=== PATIENT | male | born 1970 | race Two or more races ===

== ENCOUNTER 2022-03-19 09:28 | Emergency (ER) | payer MEDICAID, OTHER, SELFPAY ==
--- NOTE | ~2022-03-19 | CT_ITS ---
EXAMINATION: CT ABDOMEN AND PELVIS WITHOUT CONTRAST CLINICAL INFORMATION: Intermittent constipation for 20 days. COMPARISON: None TECHNIQUE: Multidetector volumetric imaging was performed from the superior aspect of the liver through the pubic symphysis. Sagittal and coronal reformatted images were obtained on the technologist's workstation. Lack of intravenous and oral contrast limits visceral evaluation. This CT examination was performed using dose optimization techniques as appropriate, variously including the following: *Automated exposure control *Adjustment of mA and/or kV according to patient size (this includes techniques or standardized protocols for targeted exams where dose is matched to indication/reason for exam; i.e. extremities or head) *Use of iterative reconstruction technique DLP: 467 mGy-cm FINDINGS: LUNG BASES: The visualized lung bases are unremarkable. LIVER, GALLBLADDER, AND BILIARY TREE: Unremarkable. PANCREAS: Unremarkable. SPLEEN: Unremarkable. ADRENAL GLANDS: Unremarkable. KIDNEYS AND URETERS: The kidneys are normal in size, shape, and attenuation. No hydronephrosis, hydroureter, or calculi seen. No perinephric stranding. BLADDER: Unremarkable. GASTROINTESTINAL TRACT: The stomach and small bowel are unremarkable. The appendix is unremarkable. The colon shows mild stool without surrounding abnormality. ABDOMINAL WALL: Very small umbilical hernia without associated abnormality. LYMPH NODES: Normal. VASCULAR: Unremarkable. PELVIC VISCERA: Unremarkable. OSSEOUS STRUCTURES: L5-S1 mild degenerative disc disease. No suspicious abnormality. CT/CT abdomen pelvis wo IV con IMPRESSION: 1. No acute intra-abdominal/pelvic abnormality. Mild colonic stool burden without focal abnormality. 2. Very small umbilical hernia without associated abnormality. 3. L5-S1 mild degenerative disc disease.
[2022-03-19 09:32] VITALS: BP 148/106; PULSE 73; RESP 16; TEMP 36.7; O2SAT 99; BMI 27.7
--- NOTE | 2022-03-19 10:11 | ED.ABDPAIN ---
HPI - Abdominal Pain General Chief Complaint: General Medical Stated Complaint: Constipation Time Seen by Provider: 03/19/22 10:03 Source: patient and family Mode of arrival: ambulatory Limitations: language barrier (Panamanian-speaking) History of Present Illness HPI narrative: 51yoM c PMHx of XANDER who is Panamanian-speaking presenting to the ED with complaints of intermittent constipation over the past 20 days. Reports that his last bowel movement was approximately 2 days ago and it was a small amount and very hard. He reports when he does have a bowel movement he has a really sharp back pain. Otherwise he does not have any back pain when he is not having a bowel movement. He reports that he has never suffered from constipation in the past. He reports this started 20 days ago. He reports his stools are still on the thinner side. He denies any dizziness, headaches, chest pain or shortness breath, nausea vomiting, abdominal pain, flank pain, hematuria, black or bloody stools, diarrhea, urinary or bowel incontinence or retention, IV drug use, rashes, recent falls or trauma, dysuria, hematuria, abnormal penile discharge, history of cancer, recent travel or any other symptoms complaints or concerns at this time. MD elicited complaint: other (Constipation) Pertinent past history: none Onset (ago): day(s) (Started approximately 20 days ago last bowel movement was 2 days ago) Pain Consistency: intermittent Location: other (back) Severity: mild Quality: aching Radiation: none Migration to: no migration Exacerbating factors: bowel movement Relieving factors: nothing Associated symptoms: denies other symptoms Related Data Previous Rx's Medication Instructions Recorded docusate sodium 100 mg capsule 100 mg PO BID PRN Constipation #30 03/19/22 (Colace) caps polyethylene glycol 3350 17 17 g PO DAILY #238 grams 03/19/22 gram/dose oral powder (Miralax) Allergies Allergy/AdvReac Type Severity Reaction Status Date / Time No Known Allergies Allergy Verified 03/19/22 09:35 Review of Systems Review of Systems Constitutional : No Fever, No Chills, No Night Sweats, No Fatigue, No Malaise Cardiovascular : No Chest Pain, No SOB Respiratory : No Cough, No Sputum, No Wheezing, No Dyspnea Gastrointestinal : +Constipation, No Nausea, No Vomiting, No Diarrhea, No abdominal Pain, No Hematochezia, No Melena Genitourinary : No irregular bleeding, No Dysuria, No Urinary Frequency, No Hematuria,No Urinary Incontinence, No Urgency, No Flank Pain Musculoskeletal : No joint pain, No Myalgias, No Joint Swelling Skin : No Skin Lesions, No rash Neuro : No Weakness, No Numbness, No Paresthesias, No Loss of Consciousness, No Dizziness, No Headache Heme/Lymph: No Lymphadenopathy Endocrine : No Temperature Intolerance Yes all other systems are reviewed and are negative [facility] Past Medical History Attestation statement: The following information was validated with the patient. Source: old records reviewed, obtained from family and nursing notes reviewed Social History Social History Advance Directives: No Advance Directives Information Provided: Yes Physical Exam ED Vital Signs: Vital Signs - 24 hr 03/19/22 09:32 Temperature 98.1 F Pulse Rate 73 Respiratory Rate 16 Blood Pressure 148/106 H Pulse Oximetry 99 Oxygen Delivery Method Room Air BMI result Body Mass Index 27.7 vital signs have been reviewed as normal and appeared to be correct. Blood pressure 148/106. Heart rate normal. Respiration rate normal. Temperature normal. Oxygen saturation normal. Appearance: Alert. Oriented X3. No acute distress. Head: Normal external exam. Normocephalic. Atraumatic. Eyes: PERRLA. EOMI. Conjunctiva and sclera normal. Eyelids normal. ENT: Pharynx normal. Uvula midline. Moist mucous membranes. No lesions/ulcerations or masses noted on the tongue. Normal voice. No trismus noted. No drooling noted. No muffled voice noted. Neck: Normal inspection. Neck supple. FROM. No adenopathy. Thyroid Normal. No meningeal signs. CVS: Normal heart rate and rhythm. Heart sound normal. Pulses normal throughout. No murmurs/rales/gallops. Respiratory: No respiratory distress. Painless inspiration. Breath sounds normal. No wheezes/rales/rhonchi noted. No accessory muscle usage noted or decreased air movement noted. Abdomen: Soft and nontender. Bowel sounds normal in all 4 quadrants. No distention noted. No organomegaly noted. No visible injury noted. Back: No CVA tenderness. Full range of motion noted. Nontender. No signs of trauma. Patient neuro intact bilaterally and distally on all 4 extremities. Patient's reflexes intact bilaterally and distally on all 4 extremities. No rashes/lesion/induration/fluctuance or signs of infection noted. Skin: Skin warm and dry. Normal skin color. Normal skin turgor. No rashes/lesions/lacerations noted. Extremities: Extremities exhibit normal range of motion and nontender. Neuro: Oriented X 3. No motor deficit. No sensory deficit. Normal steady gait. No focal neuro deficits noted. CN's II-XII intact bilaterally? Vascular: + radial pulses/+ 2 distal pedal pulses/+2 dorsalis pedis b/l. Normal cap refill. No cyanosis noted to upper extremity nails Course Course Course Narrative: 10:15am - 51yoM c PMHx of XANDER who is Panamanian-speaking presenting to the ED with complaints of intermittent constipation over the past 20 days, last bowel movement approximately 2 days ago which was a small amount and very hard. He reports that he has noticed his stools have been on the thinner size. He denies having constipation the past. He denies any other symptoms complaints or concerns at this time. Presentation not consistent with acute bowel obstruction caused by tumor, stricture, hernia, adhesion, volvulus, or fecal impaction. Low suspicion for etiology related to new medications including opioids, antipsychotic, anticholinergics, anti acid or antihistamines. Patient has a judd not consistent with acute anal rectal disorders. Low suspicion for chronic causes of constipation including hypothyroidism or electrolyte disorder. Presentation not consistent with other acute, emergent causes of constipation at this time. Plan: Will obtain labs including electrolytes/magnesium and TSH level. Obtain a CT scan abdomen pelvis without IV contrast and re-evaluate. Reevaluation(s) Reevaluation #1: Labs obtained and reviewed revealed - platelet count 146. - total bilirubin 1.1. - ALT 41. - otherwise all other labs are within normal limits including magnesium and TSH level. - CT scan abdomen pelvis without IV contrast revealed umbilical hernia and degenerative disc changes and lower spine along with mild constipation otherwise no other acute processes. Therefore at this time will DC home with Colace and MiraLax and instructions to follow-up with PCP and Gastroenterology for outpatient colonoscopy and to return if any new or worsening symptoms. Patient understands agrees with this plan. Time: 11:37 MDM - Abdominal Pain Medical Records Attestation: I reviewed the patient's medical records. Lab Data Attestation: I reviewed the patient's lab results. Result diagrams: 03/19/22 10:30 03/19/22 10:30 Labs: Lab Results 03/19/22 03/19/22 Range/Units 10:30 10:30 WBC 5.6 (4.8-10.8) X10*3/uL RBC 4.96 (4.60-5.80) X10*6/uL Hgb 15.2 (14.0-18.0) g/dl Hct 44.7 (42.0-52.0) % MCV 90.1 (80.0-98.0) fL MCH 30.6 (27.0-33.0) pg MCHC 34.0 (31.0-36.0) g/dl RDW 11.5 (11.0-16.0) % Plt Count 146 L (160-400) X10*3/uL MPV 10.0 (9.4-12.4) fL Immature Gran % (Auto) 0.0 (0.0-0.4) % Neut % (Auto) 44.7 L (45-73) % Lymph % (Auto) 45.7 H (20-40) % [place] % (Auto) 7.2 (2-11) % Eos % (Auto) 2.2 (0-4) % Baso % (Auto) 0.2 (0-2) % Lymph # (Auto) 2.5 (1.2-4.9) X10*3/uL [place] # (Auto) 0.4 (0.1-1.2) X10*3/uL Eos # (Auto) 0.1 (0.0-0.4) X10*3/uL Baso # (Auto) 0.0 (0.0-0.2) X10*3/uL Abs Immat Gran (auto) 0.00 (0.00-0.03) X10*3/uL Absolute Neuts (auto) 2.5 (2.0-8.3) x10*3/uL Absolute Nucleated RBC 0.000 (0.0-0.012) X10*3/uL Nucleated RBC % (auto) 0.0 (0.0-0.2) /100WBC Sodium 140 (135-145) mmol/L Potassium 4.2 (3.3-5.1) mmol/L Chloride 102 (96-108) mmol/L Carbon Dioxide 28 (22-29) mmol/L Anion Gap 14 (12-20) BUN 13 (9-16) mg/dL Creatinine 0.96 (0.5-1.4) mg/dL Estim Creat Clear Calc 91.4 Estimated GFR > 60 Random Glucose 93 (60-115) mg/dL Calcium 9.5 (8.4-10.2) mg/dL Magnesium 2.0 (1.6-2.6) mg/dL Total Bilirubin 1.1 H (0.0-1.0) mg/dL AST 23 (5-37) U/L ALT 41 H (0-40) U/L Alkaline Phosphatase 71 (39-117) U/L Total Protein 7.5 (6.5-8.0) g/dL Albumin 4.6 (3.5-5.0) g/dL TSH 1.69 (0.32-4.0) uIU/mL Imaging Data CT scan abdomen pelvis without IV contrast: Attestation: I personally reviewed and interpreted this imaging study as follows: Radiologist's impression: FINDINGS: LUNG BASES: The visualized lung bases are unremarkable.? LIVER, GALLBLADDER, AND BILIARY TREE: Unremarkable. PANCREAS: Unremarkable.? SPLEEN: Unremarkable.? ADRENAL GLANDS: Unremarkable.? KIDNEYS AND URETERS: The kidneys are normal in size, shape, and attenuation. No hydronephrosis, hydroureter, or calculi seen. No perinephric stranding. ? BLADDER: Unremarkable.? GASTROINTESTINAL TRACT: The stomach and small bowel are unremarkable. The appendix is unremarkable. The colon shows mild stool without surrounding abnormality.? ABDOMINAL WALL: Very small umbilical hernia without associated abnormality.? LYMPH NODES: Normal. VASCULAR: Unremarkable. PELVIC VISCERA: Unremarkable.? OSSEOUS STRUCTURES: L5-S1 mild degenerative disc disease. No suspicious abnormality.? CT/CT abdomen pelvis wo IV con IMPRESSION: 1.? No acute intra-abdominal/pelvic abnormality. Mild colonic stool burden without focal abnormality. 2.? Very small umbilical hernia without associated abnormality. 3.? L5-S1 mild degenerative disc disease. Discharge Plan Discharge Clinical Impression: Constipation Patient Disposition: Home, Self-Care Instructions: Constipation (ED), High Fiber Diet (ED) Additional Instructions: Llame para hacer gina roel ambulatoria para gina posible colonoscopia ambulatoria en un tratamiento de evaluaci?n adicional relacionado con el estre?imiento Prescriptions: New docusate sodium [Colace] 100 mg capsule 100 mg PO BID PRN (Reason: Constipation) Qty: 30 0RF polyethylene glycol 3350 [Miralax] 17 gram/dose powder 17 g PO DAILY Qty: 238 0RF Referrals: Neetu Ramírez MD [Physician] - (Call to make an outpatient appointment for possible outpatient colonoscopy in further evaluation treatment regarding or constipation Llame para hacer gina roel ambulatoria para gina posible colonoscopia ambulatoria en un tratamiento de evaluaci?n adicional relacionado con el estre?imiento) Print Language: Panamanian
[2022-03-19 10:35] LABS: MANUAL DIFF FLAG NO
[2022-03-19 10:38] LABS: Basophils Percent Auto 0.2 % (0-2); Eosinophils Absolute Auto 0.1 X10*3/uL (0.0-0.4); Eosinophils Percent Auto 2.2 % (0-4); Hematocrit 44.7 % (42.0-52.0); Hemoglobin 15.2 g/dl (14.0-18.0); Lymphocytes Absolute Auto 2.5 X10*3/uL (1.2-4.9); Lymphocytes Percent Auto 45.7 % (20-40); Mean Corpuscular Hemoglobin 30.6 pg (27.0-33.0); Mean Corpuscular Volume 90.1 fL (80.0-98.0); Monocytes Absolute Auto 0.4 X10*3/uL (0.1-1.2); Monocytes Percent Auto 7.2 % (2-11); Neutrophils Absolute Auto 2.5 x10*3/uL (2.0-8.3); Neutrophils Percent Auto 44.7 % (45-73); Platelet Count 146 X10*3/uL (160-400); Red Blood Count 4.96 X10*6/uL (4.60-5.80); Red Cell Distribution Width 11.5 % (11.0-16.0); White Blood Count 5.6 X10*3/uL (4.8-10.8)
[2022-03-19 11:01] LABS: Alanine Aminotransferase 41 U/L (0-40); Albumin Level 4.6 g/dL (3.5-5.0); Alkaline Phosphatase 71 U/L (39-117); Anion Gap 14 (12-20); Aspartate Amino Transferase 23 U/L (5-37); Blood Urea Nitrogen 13 mg/dL (9-16); Calcium 9.5 mg/dL (8.4-10.2); Carbon Dioxide 28 mmol/L (22-29); Chloride 102 mmol/L (96-108); Creatinine Clr Calc Pharmacy 91.4; Estimated Glomerular Filt Rate > 60; Glucose Random 93 mg/dL (60-115); Potassium 4.2 mmol/L (3.3-5.1); Sodium 140 mmol/L (135-145); Total Protein 7.5 g/dL (6.5-8.0)
[2022-03-19 11:35] LABS: Bilirubin Total 1.1 mg/dL (0.0-1.0); TSH reflex Free T4 1.69 uIU/mL (0.32-4.0)
== END 2022-03-19 11:48 | disposition home or self-care (01) ==
PROVIDERS: Physician Assistant Medical; Emergency Provider Student in an Organized Health Care Education/Training Program
DX: K59.00 Constipation, unspecified (principal); Z79.899 Other long term (current) drug therapy
CPT/HCPCS: 36415; 74176; 80053; 83735; 84443; 85025; 99282; 99283

== ENCOUNTER 2024-03-15 18:58 | Emergency (ER) | payer MEDICAID, OTHER, SELFPAY ==
--- NOTE | 2024-03-15 19:00 | ED.GENADULT ---
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 Reports history of internal hemorrhoids. He has not required surgery for this. He currently follows with GI. Admits to recent constipation. He has been trialing miralax and OTC aloe vera pills. He has not trialed any stool softeners. Admits to straining however was able to pass a BM this morning with hard stool. Denies any abdominal pain, rectal bleeding, hematochezia, melena, or rectal discharge. Related Data Previous Rx's ?Medication ?Instructions ?Recorded docusate sodium 100 mg capsule 100 mg PO BID PRN Constipation #30 03/19/22 (Colace) caps polyethylene glycol 3350 17 17 g PO DAILY #238 grams 03/19/22 gram/dose oral powder (Miralax) pramoxine 1 % topical foam 1 appl MS BID #15 grams 03/15/24 (Proctofoam) Allergies Allergy/AdvReac Type Severity Reaction Status Date / Time No Known Allergies Allergy Verified 03/15/24 19:04 Review of Systems Review of Systems: Constitutional: No fever, chills, fatigue, night sweats, weight changes ENT/Mouth: No ear pain, hearing loss, nasal congestion, sinus pain, rhinorrhea, sore throat Eyes: No eye pain, swelling, redness, vision changes, discharge Cardio: No chest pain, palpitations, BRISENO, orthopnea, peripheral edema Pulm: No SOB, cough, sputum, wheezing, dyspnea, hemoptysis GI: No nausea, vomiting, hematemesis, abdominal pain, diarrhea, hematochezia, melena, +rectal pain, +constipation : No irregular bleeding, dysuria, frequency, urgency, hesitancy, hematuria, flank pain, urinary flow changes, urinary incontinence or retention MSK: No back pain, neck pain, joint pain, myalgias Skin: No lesions, rashes Neuro: No weakness, numbness, paresthesias, LOC, dizziness, headache Psych: No anxiety/panic, depression, SI/HI, AH/VH All other systems reviewed and are negative. [facility] Past Medical History Attestation statement: The following information was validated with the patient. Source: old records reviewed and nursing notes reviewed Social History Social History Advance Directives: No Advance Directives Information Provided: Yes Physical Exam ED Vital Signs: Vital Signs - 24 hr 03/15/24 19:02 03/15/24 22:24 Temperature 98.4 F 98.4 F Pulse Rate 85 85 Respiratory Rate 18 18 Blood Pressure 148/91 H 148/91 H Pulse Oximetry 97 97 Oxygen Delivery Method Room Air Room Air BMI result Body Mass Index 25.3 hypertensive, vitals otherwise wnlGeneral: Well appearing, in no acute distress. Skin: Warm, dry, intact. No rashes or lesions. Head: Normocephalic, atraumatic. Neck: Supple without LAD Cardiac: Chest wall symmetric. RRR. Lungs: Normal respiratory effort without accessory muscle use. Abdomen: Soft, non-tender, non-distended. No rebound tenderness or guarding. Positive BS x4. Rectal exam performed, patient declining chaparone. Normal rectal sphincter tone. there is a singular external hemorrhoid without evidence of thrombosis. slightly tender. no fistuala or fissure. no palpable internal hemorrhoids. no palpable stool in rectal vault. Ext: Upper and lower extremities atraumatic, without tenderness, deformity, swelling or erythema. Full ROM throughout. Neuro: AOx3. Normal speech. Ambulating with steady gait. Psych: Appropriate mood and affect. Responds appropriately to questions. Course Course Course Narrative: This is a rapid medical exam performed by Kaye Painter NP: Additional HPI, ROS, PE not included below will be deferred to primary provider. Patient is a 53-year-old Barbadian speaking male presenting to the emergency department with complaint of hemorrhoids, over the past week, having constipation. Has been straining to have BMs. Using Miralax, other OTC medications, drinking aloe vera without relief. Denies bleeding today, has had some in past week. Also had a recent prostate procedure on 12/26/23. Exam deferred to primary provider due to privacy concerns. Reevaluation(s) Reevaluation #1: Physical exam is consistent with external hemorrhoid. no bleeding. no evidence of thrombosis. exam otherwise benign. no clinical indication for labs or imaging. will apply rectal hydrocortisone. proctofoam sent to pharmacy for treatment. will also send colace. advised to follow up with his GI doctor. Patient has remained stable throughout ED visit today. Discussed worrisome signs and symptoms and when to return to the ED. All questions answered at this time. Patient is agreeable with disposition and stable for discharge. Medications Administered Discontinued Medications Generic Name Dose Route Start Last Admin Trade Name Pita PRN Reason Stop Dose Admin Hydrocortisone 1 appl 03/15/24 21:45 03/15/24 22:18 Hydrocortisone 2.5 % Rectal Cr 30 Gm Tube MS 03/15/24 21:46 1 appl ONCE ONE Administration Medical Decision Making Medical Decision Making [facility] Narrative: 53 year old Barbadian speaking male presents to the ED today with rectal pain x3 months, worsening x1 week. Hypertensive, vitals otherwise WNL. He is nontoxic-appearing in no acute distress. Soft, non-tender, non-distended. No rebound tenderness or guarding. Positive BS x4. Rectal exam w/ normal rectal sphincter tone. there is a singular external hemorrhoid without evidence of thrombosis. slightly tender. no fistuala or fissure. no palpable internal hemorrhoids. no palpable stool in rectal vault. Differential diagnosis includes external vs internal hemorrhoid, constipation, fissure, fistula Plan for exam, disposition. Differential Diagnosis Differential Diagnoses: The differential diagnosis associated with the presentation includes as above. Admission/Observation not indicated. External Record Review External record reviewed: Inpatient record Prescription Management I considered prescription management with: Other (proctofoam) Social Determinants Patient?s care significantly limited by Social Determinants of Health including: Other Social Determinant of Health Critical Care Time Critical Care Time Critical Care Time: No Discharge Plan Discharge Clinical Impression: External hemorrhoid Patient Disposition: Home, Self-Care Instructions: Hemorrhoids (ED) Additional Instructions: You were evaluated in the ED today for rectal pain. You have an external hemorrhoid. I have sent preparation H to your pharmacy. Apply this to the area daily/ I have also sent Colace to your pharmacy which is a stool softener. Use this as needed to soften your stools. Continue MiraLax at home. Follow up with your primary care provider. I advised to call your GI specialist tomorrow and make an appointment. Return with new or worsening symptoms. In the case of an emergency call 911. Prescriptions: New pramoxine [Proctofoam] 1 % foam 1 appl MS BID Qty: 15 0RF No Action docusate sodium [Colace] 100 mg capsule 100 mg PO BID PRN (Reason: Constipation) Qty: 30 0RF polyethylene glycol 3350 [Miralax] 17 gram/dose powder 17 g PO DAILY Qty: 238 0RF Stand Alone Forms: Work/School Release Interventions: ED Discharge Assessment Last Done: 03/15/24 22:24 Discharge Date/Time: 03/15/24 22:24 Print Language: Barbadian
[2024-03-15 19:02] VITALS: BP 148/91; PULSE 85; RESP 18; TEMP 36.9; O2SAT 97; BMI 25.3
[2024-03-15] MEDS: Hydrocortisone 2.5 % Rectal Cr 30 GM TUBE 1 APPL PR (22:18)
[2024-03-15 22:24] VITALS: BP 148/91; PULSE 85; RESP 18; TEMP 36.9; O2SAT 97
== END 2024-03-15 22:24 | disposition home or self-care (01) ==
PROVIDERS: Emergency Provider Emergency Medicine
DX: K64.4 Residual hemorrhoidal skin tags (principal)
CPT/HCPCS: 99282; 99283